=== PATIENT | female | born 1950 | race African-American/Black ===

== ENCOUNTER 2017-01-11 11:38 | Emergency (ER) | payer MEDICARE, OTHER ==
[~2017-01-11] VITALS: Ht 172.7 cm; Wt 64.4 kg
[2017-01-11 11:45] VITALS: BP 128/82
[2017-01-11] MEDS ORDERED: IBUPROFEN 200 MG TABLET ONE (12:08)
--- NOTE | 2017-01-11 12:15 | NUR ---
PROVIDED WITH ICEPACK PER RECOVERY COACH VERBAL ORDER
[2017-01-11] MEDS ORDERED: IBUPROFEN 600 MG TABLET PO ONE (12:30)
== END 2017-01-11 12:27 | disposition home or self-care (01) ==
LOC: ER 11:39
DX: M25.561 Pain in right knee (principal); G89.29 Other chronic pain; Z88.5 Allergy status to narcotic agent
CPT/HCPCS: 99283; A4606; Z7610